=== PATIENT | female | born 1995 | race Caucasian/White ===

== ENCOUNTER 2018-10-19 02:44 | Emergency (ER) | payer OTHER ==
[2018-10-19 03:01] VITALS: BP 130/70
[2018-10-19] MEDS ORDERED: Ketorolac 10 MG Tab PO ONE (03:23)
[2018-10-19] MEDS ORDERED: traMADol 50 MG Tab PO ONE (03:23)
--- NOTE | 2018-10-19 03:27 | EDM.PDOC ---
ED HPI GENERAL MEDICAL PROBLEM - General Chief Complaint: Upper Extremity Injury/Pain Stated Complaint: right wrist pain Time Seen by Provider: 10/19/18 03:12 Source of Information: Reports: Patient History Limitations: Reports: No Limitations - History of Present Illness INITIAL COMMENTS - FREE TEXT/NARRATIVE: Wrist injury on right after having heavy bathroom door slam shut on her while she was turning out bathroom light. Has pain and bruising on area of right wrist. Hand and fingers are not involved. No pain proximal to wrist. No numbness/tingling/deformity. Denies other injuries. right wrist Pain Score (Numeric/FACES): 7 - Related Data Allergies Allergy/AdvReac Type Severity Reaction Status Date / Time No Known Allergies Allergy Verified 10/19/18 02:45 Home Meds: Home Meds . [No Known Home Meds] 01/19/17 [History] Past Medical History - Past Health History Medical/Surgical History: Denies Medical/Surgical History HEENT History: Reports: Other (See Below) Other HEENT History: seasonal allergies Cardiovascular History: Reports: Hypertension Respiratory History: Reports: Asthma Social & Family History - Family History Family Medical History: Noncontributory - Tobacco Use Smoking Status *Q: Never Smoker - Caffeine Use Caffeine Use: Reports: Coffee - Recreational Drug Use Recreational Drug Use: No Review of Systems - Review of Systems Review Of Systems: ROS reveals no pertinent complaints other than HPI. ED EXAM, GENERAL - Physical Exam Exam: See Below Exam Limited By: No Limitations General Appearance: Alert, WD/WN, No Apparent Distress Eye Exam: Bilateral Eye: EOMI, PERRL Throat/Mouth: Normal Voice, No Airway Compromise Head: Atraumatic, Normocephalic Neck: Supple Respiratory/Chest: No Respiratory Distress Peripheral Pulses: 2+: Radial (R) Extremities: Normal Capillary Refill, Other (Right wrist area shows mild soft tissue swelling dorsal lateral area. Early bruising noted in same area as well as on ventral surface of wrist. Pain with palpation over dorsal and ventral wrist surfaces diffusely. Metacarpals and fingers non-tender. Tendon function appears intact. Forearm nontender proximal to wrist. NVI. ) Neurological: Alert, Oriented, Normal Cognition, Normal Gait, No Motor/Sensory Deficits Psychiatric: Normal Affect, Normal Mood Skin Exam: Warm, Dry, Intact, Ecchymosis Course - Vital Signs Last Recorded V/S: Last Vital Signs Temp 36.8 C 10/19/18 02:55 Pulse 76 10/19/18 02:55 Resp 16 10/19/18 02:55 BP 130/70 10/19/18 02:55 Pulse Ox 99 10/19/18 02:55 - Orders/Labs/Meds Orders: Active Orders 24 hr Category Date Time Status Wrist Comp Min 3V Rt [CR] Stat Exams 10/19/18 02:49 Taken Meds: Medications Discontinued Medications Generic Name Dose Route Start Last Admin Trade Name Evert PRN Reason Stop Dose Admin Ketorolac Tromethamine 10 mg 10/19/18 03:23 Toradol PO 10/19/18 03:24 ONETIME ONE Tramadol HCl 50 mg 10/19/18 03:23 Ultram PO 10/19/18 03:24 ONETIME ONE - Radiology Interpretation Free Text/Narrative:: No obvious fractures noted on xray - Re-Assessments/Exams Free Text/Narrative Re-Assessment/Exam: 10/19/18 03:32 No obvious fracture identified. Patient diagnosed with wrist contusion/crush injury. Placed in protective/supportive premade velcro wrist splint. Had taken ibuprofen prior to coming to ER. Single dose Tramadol given in ER. Feels unable to hold blowtorch in right hand, excused from work for rest of shift as well as tomorrow night's shift. To follow up for recheck on Tuesday if pain is not improving. Departure - Departure Time of Disposition: 03:30 Disposition: Home, Self-Care 01 Condition: Good Clinical Impression: Crush injury, wrist Qualifiers: Encounter type: initial encounter Laterality: right Qualified Code(s): S67.31XA - Crushing injury of right wrist, initial encounter - Discharge Information *PRESCRIPTION DRUG MONITORING PROGRAM REVIEWED*: Not Applicable *COPY OF PRESCRIPTION DRUG MONITORING REPORT IN PATIENT MARCOS: Not Applicable Instructions: Crush Injury of the Hand, [id number] Referrals: PCP,None [Primary Care Provider] - Forms: ED Department Discharge Additional Instructions: Wear splint for protection/comfort/support. OK to ice injured area for 10min every 1-2 hours while awake to help with pain/ swelling. No work tonight and tomorrow night. Follow up for recheck and further restrictions as needed if no significant improvement within the next 48 hours. Ibuprofen or Aleve or Tylenol can be used to help with pain as needed. - My Orders Last 24 Hours: My Active Orders 10/19/18 02:49 Wrist Comp Min 3V Rt [CR] Stat - Assessment/Plan Last 24 Hours: My Active Orders 10/19/18 02:49 Wrist Comp Min 3V Rt [CR] Stat
== END 2018-10-19 03:45 | disposition home or self-care (01) ==
LOC: LL.ED 02:44
DX: S67.31XA Crushing injury of right wrist, initial encounter (principal); S60.211A Contusion of right wrist, initial encounter; I10 Essential (primary) hypertension; W23.0XXA Caught, crushed, jammed, or pinched between moving objects, initial encounter
CPT/HCPCS: 73110-RT; 99283-25; A9270-GY

== ENCOUNTER 2019-04-23 23:50 | Emergency (ER) | payer OTHER ==
[2019-04-24 00:02] VITALS: BP 122/69; PULSE 54
[2019-04-24] MEDS: SUMAtriptan 6 MG/0.5 ML SDV SUBCUT ONE (00:50)
[2019-04-24] MEDS: Promethazine 25 MG/ML SDV IM PRN (00:50)
--- NOTE | 2019-04-24 02:12 | EDM.PDOC ---
ED HPI GENERAL MEDICAL PROBLEM - General Chief Complaint: Headache Stated Complaint: Migraine Time Seen by Provider: 04/24/19 00:10 Source of Information: Reports: Patient History Limitations: Reports: No Limitations - History of Present Illness INITIAL COMMENTS - FREE TEXT/NARRATIVE: Patient is a 24-year-old female seen with right sided headaches patient states she's had migraines in the past and this feels like a migraine also is been nauseated patient does have photophobia Onset: Sudden Duration: Hour(s):, Constant Location: Reports: Head Quality: Reports: Ache, Throbbing Severity: Moderate Improves with: Reports: Medication Worsens with: Reports: None Associated Symptoms: Reports: Nausea/Vomiting 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 Migraine Pain Score (Numeric/FACES): 8 - Related Data Allergies Allergy/AdvReac Type Severity Reaction Status Date / Time shellfish derived Allergy Other Verified 04/24/19 00:22 Home Meds: Home Meds Ibuprofen 400 mg PO Q6HR PRN 04/23/19 [History] Naproxen Sodium [Aleve] 440 mg PO BID PRN 04/23/19 [History] Past Medical History - Past Health History Medical/Surgical History: Denies Medical/Surgical History HEENT History: Reports: Other (See Below) Other HEENT History: seasonal allergies Cardiovascular History: Reports: Hypertension Respiratory History: Reports: Asthma Social & Family History - Family History Family Medical History: Noncontributory - Caffeine Use Caffeine Use: Reports: Coffee ED ROS GENERAL - Review of Systems Review Of Systems: See Below Constitutional: Reports: No Symptoms HEENT: Reports: No Symptoms Respiratory: Reports: No Symptoms Cardiovascular: Reports: No Symptoms Endocrine: Reports: No Symptoms GI/Abdominal: Reports: No Symptoms : Reports: No Symptoms Musculoskeletal: Reports: No Symptoms Skin: Reports: No Symptoms Neurological: Reports: No Symptoms Psychiatric: Reports: No Symptoms Hematologic/Lymphatic: Reports: No Symptoms Immunologic: Reports: No Symptoms ED EXAM, HEAD INJURY - Physical Exam Exam: See Below Exam Limited By: No Limitations General Appearance: Alert, WD/WN, No Apparent Distress Head: Atraumatic, Normocephalic Eyes: Bilateral Eye: EOMI, PERRL Ears: Normal External Exam, Normal Canal, Hearing Grossly Normal, Normal TMs Nose: Normal Inspection, Normal Mucousa, No Blood Throat/Mouth: Normal Inspection, Normal Lips, Normal Teeth, Normal Gums, Normal Oropharynx, Normal Voice, No Airway Compromise Neck: Non-Tender, Full Range of Motion, Normal Alignment, Normal Inspection Respiratory: No Respiratory Distress, Lungs Clear, Normal Breath Sounds, No Accessory Muscle Use, Chest Non-Tender Cardiovascular: Normal Peripheral Pulses, Regular Rate, Rhythm, No Edema, No Gallop, No JVD, No Murmur, No Rub GI/Abdominal Exam: Normal Bowel Sounds, Soft, Non-Tender, No Organomegaly, No Distention, No Abnormal Bruit, No Mass (Female) Exam: Deferred Rectal (Female) Exam: Deferred Back Exam: Full Range of Motion, Normal Inspection, NT Extremities: Normal Inspection, Normal Range of Motion, Non-Tender, No Pedal Edema, Normal Capillary Refill Neurologic: school director II-XII nml As Tested, No Motor/Sensory Deficits, Alert, Normal Mood/Affect, Oriented x 3 Skin: Normal Color, Warm/Dry - Danielle Coma Score Best Eye Response ([place]): (4) Open Spontaneously Best Verbal Response (Danielle): (5) Oriented Best Motor Response ([place]): (6) Obeys Commands Danielle Total: 15 Course - Vital Signs Last Recorded V/S: Last Vital Signs Temp 97.7 F 04/23/19 23:55 Pulse 54 L 04/23/19 23:55 Resp 14 04/23/19 23:55 BP 122/69 04/23/19 23:55 Pulse Ox 99 04/23/19 23:55 - Orders/Labs/Meds Orders: Active Orders 24 hr Category Date Time Status Promethazine [Phenergan] Med 04/24/19 00:25 Active 25 mg IM Q6H PRN Medication Orders Promethazine HCl (Phenergan) 25 mg IM Q6H PRN PRN Reason: Nausea Last Admin: 04/24/19 00:50 Dose: 25 mg Meds: Medications Generic Name Dose Route Start Last Admin Trade Name Freq PRN Reason Stop Dose Admin Promethazine HCl 25 mg 04/24/19 00:25 04/24/19 00:50 Phenergan IM 25 mg Q6H PRN Administration Nausea Discontinued Medications Generic Name Dose Route Start Last Admin Trade Name Freq PRN Reason Stop Dose Admin Sumatriptan Succinate 6 mg 04/24/19 00:25 04/24/19 00:50 Imitrex SUBCUT 04/24/19 00:26 6 mg ONETIME ONE Administration Departure - Departure Time of Disposition: 02:11 Disposition: Home, Self-Care 01 Condition: Fair Clinical Impression: Migraine, Migraine headache - Discharge Information *PRESCRIPTION DRUG MONITORING PROGRAM REVIEWED*: No *COPY OF PRESCRIPTION DRUG MONITORING REPORT IN PATIENT MARCOS: No Referrals: PCP,Not In Area [Primary Care Provider] - Care Plan Goals: Patient was treated with Imitrex and Phenergan headache improved patient will be sent home she is to follow-up with primary for possible home treatments with Imitrex or similar drugs. - My Orders Last 24 Hours: My Active Orders 04/24/19 00:25 Promethazine [Phenergan] 25 mg IM Q6H PRN - Assessment/Plan Last 24 Hours: My Active Orders 04/24/19 00:25 Promethazine [Phenergan] 25 mg IM Q6H PRN
== END 2019-04-24 02:25 | disposition home or self-care (01) ==
LOC: LL.ED 23:50
DX: G43.909 Migraine, unspecified, not intractable, without status migrainosus (principal); I10 Essential (primary) hypertension; Z91.013 Allergy to seafood
CPT/HCPCS: 96372; 99283; J2550; J3030

== ENCOUNTER 2021-10-25 03:23 | Emergency (ER) | payer OTHER ==
[2021-10-25 02:36] VITALS: BP 116/62; PULSE 85
== END 2021-10-25 04:10 | disposition home or self-care (01) ==
LOC: LL.ED 03:23
DX: N61.0 Mastitis without abscess (principal); I10 Essential (primary) hypertension; Z91.013 Allergy to seafood
CPT/HCPCS: 99283